=== PATIENT | female | born 1995 ===

== ENCOUNTER 2025-10-20 16:41 | Emergency (ER) | payer OTHER ==
[~2025-10-20] VITALS: Ht 170.2 cm; Wt 112.7 kg
[2025-10-20 16:55] VITALS: BP 156/102; PULSE 63; RESP 15; TEMP 98.6; O2SAT 97
--- NOTE | 2025-10-20 17:13 | Physician Documentation ---
History of Present Illness ~ Chief Complaint: Breast pain Stated Complaint: BREAST PAIN HPI Is a very pleasant 30-year-old female that presents to the emergency department for evaluation of left-sided breast pain times several months. Patient reports that she has felt a lump there for quite some time. That lump sometimes increases in the pain increases around the lump. Patient is a unsure whether that pain increases or breast becomes more sore around menses are not as her menstruation is irregular. Patient is also unclear if the sharp shooting sensation is in the breast tissue or if it is in the chest wall. Patient denies any shortness of breath chest pain that she associates with cardiac pain or any chest pain at this time. Patient denies fever chills nausea vomiting diarrhea. Denies any other symptoms at this time. Medication Reconciliation Allergies: Coded Allergies: No Known Allergies (Unverified , 10/20/25) Review of Systems ROS As stated above in the HPI, otherwise all systems are reviewed and negative. Physical Exam Vital Signs: Temperature: 98.6, Heart Rate: 63, Respiratory Rate: 15, BP: 156/102, Pulse Oximetry: 97, Weight: 112.730 Oxygen Flow Rate: 0 Progress Results/Orders Results/Orders Vital Signs 10/20/25 16:55 Temp 98.6 Pulse 63 Resp 15 B/P (MAP) 156/102 Pulse Ox 97 O2 Flow Rate 0 Departure Referrals: NO PRIMARY CARE PROVIDER (PCP) KYUNG BEASLEY Oct 20, 2025 17:13
== END 2025-10-20 20:28 | disposition left against medical advice (07) ==
LOC: ER 16:42
DX: N64.4 Mastodynia (principal); Z53.21 Procedure and treatment not carried out due to patient leaving prior to being seen by health care provider
CPT/HCPCS: 99281